=== PATIENT | male | born 1970 | race Caucasian/White ===

== ENCOUNTER 2016-04-04 10:32 | Inpatient (IN) | payer OTHER ==
[~2016-04-04] VITALS: Ht 177.8 cm; Wt 211.3 kg
[2016-04-04] MEDS ORDERED: NORVASC 5MG5 MG/TAB PO (11:34)
[2016-04-04] MEDS ORDERED: ASPIRIN 32325 MG/TAB PO (11:35)
[2016-04-04] MEDS ORDERED: CIPRO 500MG TA500 MG PO (11:36)
[2016-04-04] MEDS ORDERED: LASIX 40MG TABL40 MG PO (11:37)
[2016-04-04] MEDS ORDERED: ZESTRIL 20MG TA20 MG PO (11:41)
[2016-04-04] MEDS ORDERED: TOPROL XL 25MG25 MG PO (11:42)
[2016-04-04] MEDS ORDERED: KLOR-CON M2020 MEQ PO (11:43)
[2016-04-04] MEDS ORDERED: NORCO 325 MG-7.1 TAB PO (11:44)
[2016-04-04 12:10] VITALS: BP 152/90; PULSE 73
[2016-04-04 12:11] LABS: ARTERIAL BLD GAS O2 SATURATION 95.4 % (92-100); ARTERIAL BLD GAS TCO2 CT 33.1; ARTERIAL BLOOD GAS BASE EXCESS 2.5 (-2-2); ARTERIAL BLOOD GAS HCO3 31.1 meq/L (22-26); ARTERIAL BLOOD GAS PO2 90.4 mmHg (80-100); ARTERIAL BLOOD GAS pH 7.28 (7.35-7.45); OXYHEMOGLOBIN 93.7 %
[2016-04-04 12:13] LABS: ATS? YES
[2016-04-04 12:14] LABS: ALLEN TEST YES; ALLENS TEST RESULT PASS
[2016-04-04 12:41] LABS: BASO % 0.4 % (0.0-2.0); EOS # 0.1 (0.0-0.7); EOS % 0.6 % (0-4.0); GRAN # 6.3 (1.4-6.5); GRAN % 80.5 % (42.2-75.2); HEMATOCRIT 47.4 % (42.0-52.0); HEMOGLOBIN 13.5 g/dl (13.5-18.0); MEAN CELL VOLUME 82 fl (80.0-100.0); MEAN CORPUSCULAR HEMOGLOBIN 23 pg (27.0-31.0); MEAN CORPUSCULAR HGB CONC 29 g/dl (33.0-37.0); MONO # 0.4 (0.1-0.6); PLATELET COUNT 101 K/mm3 (130-400); WHITE BLOOD COUNT 7.8 K/mm3 (4.8-10.8)
[2016-04-04 12:54] LABS: BILIRUBIN,TOTAL 1.2 mg/dL (0.0-1.0); CREATININE, serum 0.79 mg/dL (0.66-1.25); POTASSIUM 4.2 mmol/L (3.4-5.0); TOTAL PROTEIN 8.8 gm/dL (6.4-8.2)
[2016-04-04 13:12] LABS: TROPONIN-I 0.165 ng/mL (0.000-0.034)
[2016-04-04 13:45] LABS: REDCELL DISTRIBUTION WIDTH-CV 21.2 % (11.5-14.5)
[2016-04-04 15:02] VITALS: BP 169/93; PULSE 86; TEMP 98
[2016-04-04 15:23] VITALS: BP 183/93; PULSE 72; TEMP 98.9
[2016-04-04 20:35] VITALS: BP 156/91; PULSE 67; TEMP 97.9
[2016-04-05] VITALS (7 sets, daily range): BP systolic 139–153; BP diastolic 59–90; PULSE 63–75; TEMP 98.1–99
[2016-04-05 05:25] LABS: PH 5 (5-8); SQUAMOUS EPITHELIAL 0-2 /hpf; URINE APPEARANCE Clear; URINE BACTERIA None Seen /hpf; URINE BILIRUBIN Negative (NEGATIVE); URINE BLOOD Negative (NEGATIVE); URINE COLOR Yellow; URINE GLUCOSE Negative (NEGATIVE); URINE KETONE Negative (NEGATIVE); URINE RBC 0-2 /hpf; URINE WBC 0-2 /hpf
[2016-04-05 11:50] LABS: BASO % 0.4 % (0.0-2.0); EOS # 0.2 (0.0-0.7); EOS % 2.9 % (0-4.0); GRAN # 5.3 (1.4-6.5); HEMATOCRIT 45.6 % (42.0-52.0); HEMOGLOBIN 12.9 g/dl (13.5-18.0); LYMPH # 0.8 (1.2-3.4); LYMPH % 12.3 % (20.0-51.0); MEAN CELL VOLUME 83 fl (80.0-100.0); MEAN CORPUSCULAR HEMOGLOBIN 24 pg (27.0-31.0); MEAN CORPUSCULAR HGB CONC 28 g/dl (33.0-37.0); MONO # 0.4 (0.1-0.6); MONO % 6.1 % (1.7-9.3); PLATELET COUNT 110 K/mm3 (130-400); RED BLOOD COUNT 5.47 M/mm3 (4.20-5.60); REDCELL DISTRIBUTION WIDTH-CV 20.6 % (11.5-14.5); WHITE BLOOD COUNT 6.8 K/mm3 (4.8-10.8)
[2016-04-06 03:40] VITALS: BP 145/78; PULSE 71; TEMP 97.3
[2016-04-06 07:53] VITALS: BP 137/62; PULSE 71; TEMP 97.8
[2016-04-06 11:38] VITALS: BP 139/73; PULSE 69; TEMP 98
[2016-04-06 17:24] VITALS: BP 151/77; PULSE 68; TEMP 99
[2016-04-06 20:21] VITALS: BP 143/77; PULSE 71; TEMP 97.8
[2016-04-07] VITALS (7 sets, daily range): BP systolic 134–152; BP diastolic 65–76; PULSE 61–69; TEMP 97.4–98.8
[2016-04-07 14:18] LABS: PH 5 (5-8); SQUAMOUS EPITHELIAL None Seen /hpf; URINE APPEARANCE Cloudy; URINE BACTERIA None Seen /hpf; URINE BILIRUBIN Negative (NEGATIVE); URINE BLOOD 3+ (NEGATIVE); URINE COLOR Red; URINE GLUCOSE 1+ (NEGATIVE); URINE KETONE Negative (NEGATIVE); URINE RBC >50 /hpf; URINE UROBILINOGEN >=4.0 mg/dL (NEGATIVE)
[2016-04-08 03:01] VITALS: BP 157/84; PULSE 69; TEMP 98.6
[2016-04-08 08:45] VITALS: BP 158/81; PULSE 66; TEMP 97.4
[2016-04-08 12:52] VITALS: BP 130/60; PULSE 69; TEMP 98.6
[2016-04-08 16:03] VITALS: BP 153/81; PULSE 69; TEMP 98.3
[2016-04-08 20:43] VITALS: BP 153/81; PULSE 68; TEMP 98.2
[2016-04-08 23:06] VITALS: BP 153/83; PULSE 73; TEMP 98.2
[2016-04-09 04:46] VITALS: BP 147/90; PULSE 80; TEMP 98.6
[2016-04-09 07:55] VITALS: BP 156/91; PULSE 73; TEMP 98.3
[2016-04-09] MEDS ORDERED: ASPIRIN 32325 MG/TAB PO (09:21)
[2016-04-09] MEDS ORDERED: PLAVIX 75MG TAB75 MG PO (09:21)
[2016-04-09] MEDS ORDERED: LIPITOR 80MG80 MG PO (09:23)
[2016-04-09 11:19] VITALS: BP 151/82; PULSE 91; TEMP 98.2
[2016-04-09 15:35] VITALS: BP 155/72; PULSE 75; TEMP 97.2
[2016-04-09 19:51] VITALS: BP 153/88; PULSE 65; TEMP 98
[2016-04-10 00:08] VITALS: BP 145/66; PULSE 84; TEMP 98.8
[2016-04-10 03:15] VITALS: BP 138/71; PULSE 69; TEMP 98.6
[2016-04-10] MEDS ORDERED: XARELTO15 MG PO (08:06)
[2016-04-10 08:25] VITALS: BP 156/80; PULSE 71; TEMP 98.9
[2016-04-10 12:06] VITALS: BP 157/80; PULSE 70; TEMP 97.3
== END 2016-04-10 15:30 | DRG 64 ==
LOC: MEDICAL 10:32
PROVIDERS: Internal Medicine; Nurse Practitioner Family
DX: I63.9 Cerebral infarction, unspecified (principal); J96.02 Acute respiratory failure with hypercapnia; I21.4 Non-ST elevation (NSTEMI) myocardial infarction; G81.91 Hemiplegia, unspecified affecting right dominant side; Z68.44 Body mass index [BMI] 60.0-69.9, adult; R47.1 Dysarthria and anarthria; E66.01 Morbid (severe) obesity due to excess calories; I10 Essential (primary) hypertension; H53.47 Heteronymous bilateral field defects
CPT/HCPCS: 99223-AI; 99232-AI; 99233-AI; 99239; A4315; J1650; J7120; Q9967

== ENCOUNTER 2016-04-10 12:34 | Inpatient (IN) | payer OTHER ==
[~2016-04-10] VITALS: Ht 177.8 cm; Wt 196.2 kg
[~2016-04-10 12:34] MED LIST: ASPIRIN 32325 MG/TAB PO; CIPRO 500MG TA500 MG PO; KLOR-CON M2020 MEQ PO; LASIX 40MG TABL40 MG PO; LIPITOR 80MG80 MG PO; NORCO 325 MG-7.1 TAB PO; NORVASC 5MG5 MG/TAB PO; PLAVIX 75MG TAB75 MG PO; TOPROL XL 25MG25 MG PO; XARELTO15 MG PO; ZESTRIL 20MG TA20 MG PO
[2016-04-10 19:10] VITALS: BP 151/83; PULSE 84; TEMP 97.6
[2016-04-11 04:21] VITALS: BP 153/78; PULSE 95; TEMP 98.2
[2016-04-11 15:51] VITALS: BP 132/67; PULSE 66; TEMP 98.5
[2016-04-11 22:36] LABS: PH 8 (5-8); SQUAMOUS EPITHELIAL 0-2 /hpf; URINE APPEARANCE Clear; URINE BACTERIA None Seen /hpf; URINE BILIRUBIN Negative (NEGATIVE); URINE BLOOD 2+ (NEGATIVE); URINE COLOR Yellow; URINE GLUCOSE Negative (NEGATIVE); URINE KETONE Negative (NEGATIVE); URINE UROBILINOGEN Negative (NEGATIVE); URINE WBC 0-2 /hpf
[2016-04-12 06:09] VITALS: BP 106/51; PULSE 66; TEMP 98
[2016-04-12 08:21] LABS: BASO # 0.1 (0.0-0.2); BASO % 0.8 % (0.0-2.0); EOS # 0.4 (0.0-0.7); EOS % 6.5 % (0-4.0); GRAN # 3.7 (1.4-6.5); GRAN % 57.8 % (42.2-75.2); HEMATOCRIT 46.8 % (42.0-52.0); HEMOGLOBIN 13.4 g/dl (13.5-18.0); LYMPH # 1.7 (1.2-3.4); LYMPH % 26.5 % (20.0-51.0); MEAN CELL VOLUME 81 fl (80.0-100.0); MEAN CORPUSCULAR HGB CONC 29 g/dl (33.0-37.0); MONO # 0.5 (0.1-0.6); MONO % 8.1 % (1.7-9.3); PLATELET COUNT 119 K/mm3 (130-400); RED BLOOD COUNT 5.76 M/mm3 (4.20-5.60); REDCELL DISTRIBUTION WIDTH-CV 20.1 % (11.5-14.5); WHITE BLOOD COUNT 6.5 K/mm3 (4.8-10.8)
[2016-04-12 08:31] LABS: CALCIUM 9.2 mg/dL (8.4-10.2); CREATININE, serum 0.76 mg/dL (0.66-1.25); POTASSIUM 4.3 mmol/L (3.4-5.0)
[2016-04-12 09:01] LABS: MEAN CORPUSCULAR HEMOGLOBIN 23 pg (27.0-31.0)
[2016-04-12 16:46] VITALS: BP 138/64; PULSE 66; TEMP 97.2
[2016-04-13 04:25] VITALS: BP 135/67; PULSE 67; TEMP 98.5
[2016-04-13 16:45] VITALS: BP 137/74; PULSE 71; TEMP 98.2
[2016-04-14 05:22] VITALS: BP 127/65; PULSE 68; TEMP 98.3
[2016-04-14 17:01] VITALS: BP 124/55; PULSE 73; TEMP 98.7
[2016-04-14 21:00] VITALS: BP 143/87; PULSE 81
[2016-04-15 06:00] VITALS: BP 112/52; PULSE 88; TEMP 99.4
[2016-04-15 08:09] VITALS: TEMP 100.8
[2016-04-15 09:34] LABS: BASO # 0.1 (0.0-0.2); BASO % 0.4 % (0.0-2.0); EOS # 0.1 (0.0-0.7); EOS % 0.6 % (0-4.0); GRAN # 11.7 (1.4-6.5); GRAN % 85.1 % (42.2-75.2); HEMATOCRIT 45.5 % (42.0-52.0); HEMOGLOBIN 13.1 g/dl (13.5-18.0); LYMPH % 7.2 % (20.0-51.0); MEAN CELL VOLUME 80 fl (80.0-100.0); MEAN CORPUSCULAR HEMOGLOBIN 23 pg (27.0-31.0); MEAN CORPUSCULAR HGB CONC 29 g/dl (33.0-37.0); MONO # 0.9 (0.1-0.6); MONO % 6.3 % (1.7-9.3); PLATELET COUNT 89 K/mm3 (130-400); RED BLOOD COUNT 5.66 M/mm3 (4.20-5.60); REDCELL DISTRIBUTION WIDTH-CV 20.5 % (11.5-14.5); WHITE BLOOD COUNT 13.8 K/mm3 (4.8-10.8)
[2016-04-15 09:38] LABS: CALCIUM 9.4 mg/dL (8.4-10.2); CREATININE, serum 0.72 mg/dL (0.66-1.25); POTASSIUM 5.3 mmol/L (3.4-5.0)
[2016-04-15 10:19] LABS: PH 8 (5-8); SQUAMOUS EPITHELIAL 0-2 /hpf; URINE APPEARANCE Clear; URINE BACTERIA None Seen /hpf; URINE BILIRUBIN Negative (NEGATIVE); URINE BLOOD 2+ (NEGATIVE); URINE COLOR Yellow; URINE GLUCOSE Negative (NEGATIVE); URINE KETONE Negative (NEGATIVE); URINE RBC >50 /hpf; URINE UROBILINOGEN Negative (NEGATIVE); URINE WBC 20-50 /hpf
[2016-04-15 14:00] VITALS: TEMP 101.2
[2016-04-16 06:04] VITALS: BP 125/56; PULSE 76; TEMP 99.1
[2016-04-16 10:54] LABS: CALCIUM 9.1 mg/dL (8.4-10.2); CREATININE, serum 0.73 mg/dL (0.66-1.25); POTASSIUM 4.6 mmol/L (3.4-5.0)
[2016-04-16 16:11] VITALS: BP 115/56; PULSE 72; TEMP 98.6
[2016-04-16 21:00] VITALS: BP 116/58; PULSE 76
[2016-04-17 07:26] VITALS: BP 107/47; PULSE 70; TEMP 98.2
[2016-04-17 16:50] VITALS: BP 110/69; PULSE 71; TEMP 98.9
[2016-04-18 04:18] VITALS: BP 98/47; PULSE 60; TEMP 97.2
[2016-04-18 16:30] VITALS: BP 112/53; PULSE 73; TEMP 98.4
[2016-04-19 03:17] VITALS: BP 113/51; PULSE 77; TEMP 98.6
[2016-04-19 07:33] LABS: BASO # 0.1 (0.0-0.2); BASO % 0.8 % (0.0-2.0); EOS # 0.7 (0.0-0.7); GRAN % 63.3 % (42.2-75.2); HEMATOCRIT 41.8 % (42.0-52.0); HEMOGLOBIN 12.1 g/dl (13.5-18.0); LYMPH % 10.7 % (20.0-51.0); MEAN CELL VOLUME 80 fl (80.0-100.0); MEAN CORPUSCULAR HEMOGLOBIN 23 pg (27.0-31.0); MEAN CORPUSCULAR HGB CONC 29 g/dl (33.0-37.0); MONO # 0.9 (0.1-0.6); MONO % 13.9 % (1.7-9.3); PLATELET COUNT 87 K/mm3 (130-400); RED BLOOD COUNT 5.24 M/mm3 (4.20-5.60); REDCELL DISTRIBUTION WIDTH-CV 20.4 % (11.5-14.5); WHITE BLOOD COUNT 6.3 K/mm3 (4.8-10.8)
[2016-04-19 07:49] LABS: CALCIUM 9.2 mg/dL (8.4-10.2); CREATININE, serum 0.79 mg/dL (0.66-1.25); POTASSIUM 4.7 mmol/L (3.4-5.0)
[2016-04-19 08:35] LABS: LYMPH # 0.7 (1.2-3.4)
[2016-04-19 17:39] VITALS: BP 122/54; PULSE 69; TEMP 98.1
[2016-04-20 06:12] VITALS: BP 120/59; PULSE 77; TEMP 97
[2016-04-20 16:10] VITALS: BP 117/64; PULSE 65; TEMP 98.1
[2016-04-21 04:16] VITALS: BP 120/60; PULSE 72; TEMP 97.5
[2016-04-21 16:06] VITALS: BP 122/62; PULSE 68; TEMP 98.6
[2016-04-22 05:07] VITALS: BP 113/53; PULSE 69; TEMP 98.2
[2016-04-22 18:30] VITALS: BP 115/63; PULSE 76; TEMP 100.4
[2016-04-22 20:49] VITALS: TEMP 100.1; TEMP 101.7; TEMP 98.7
[2016-04-23 04:59] VITALS: BP 139/74; PULSE 90; TEMP 100.1
[2016-04-23 06:27] VITALS: TEMP 101.2
[2016-04-23 08:00] VITALS: TEMP 101.7
[2016-04-23 10:00] VITALS: TEMP 99.5
[2016-04-23 16:05] VITALS: BP 147/43; PULSE 72; TEMP 98.7
[2016-04-23 19:12] LABS: PH 5 (5-8); SQUAMOUS EPITHELIAL 0-2 /hpf; URINE APPEARANCE Hazy; URINE BACTERIA None Seen /hpf; URINE BILIRUBIN Negative (NEGATIVE); URINE BLOOD 2+ (NEGATIVE); URINE COLOR Amber; URINE GLUCOSE Negative (NEGATIVE); URINE KETONE Negative (NEGATIVE); URINE UROBILINOGEN >=4.0 mg/dL (NEGATIVE)
[2016-04-24 05:36] VITALS: BP 108/45; PULSE 74; TEMP 99.5
[2016-04-24 07:04] LABS: ADD PATHOLOGY DIFF REVIEW NO
[2016-04-24 07:32] LABS: ADJUSTED CALCIUM 9.7 mg/dL (8.4-10.2); ALBUMIN 3.3 gm/dL (3.5-5.0); BILIRUBIN,TOTAL 1.2 mg/dL (0.0-1.0); CALCIUM 9.1 mg/dL (8.4-10.2); CREATININE, serum 1.16 mg/dL (0.66-1.25); MAGNESIUM 1.9 mg/dL (1.6-2.3); POTASSIUM 4.9 mmol/L (3.4-5.0); TOTAL PROTEIN 7.9 gm/dL (6.4-8.2)
[2016-04-24 07:48] LABS: HEMATOCRIT 44.1 % (42.0-52.0); HEMOGLOBIN 12.9 g/dl (13.5-18.0); MEAN CELL VOLUME 80 fl (80.0-100.0); MEAN CORPUSCULAR HEMOGLOBIN 23 pg (27.0-31.0); MEAN CORPUSCULAR HGB CONC 29 g/dl (33.0-37.0); PLATELET COUNT 137 K/mm3 (130-400); RED BLOOD COUNT 5.52 M/mm3 (4.20-5.60); REDCELL DISTRIBUTION WIDTH-CV 20.5 % (11.5-14.5); WHITE BLOOD COUNT 9.7 K/mm3 (4.8-10.8)
[2016-04-24 11:11] LABS: BAND 49 % (0-10); EOSINOPHIL 7 % (0-4); HYPOCHROMIA 1+; METAMYELOCYTE 2 % (0-0); NEUTROPHILS 30 % (42.0-75.2); TOTAL CELLS COUNTED 100
[2016-04-24 11:12] LABS: PLATELET ESTIMATE DECREASED (NORMAL)
[2016-04-24 16:07] VITALS: BP 107/60; PULSE 80; TEMP 99
[2016-04-24 20:30] VITALS: BP 112/61; PULSE 88; TEMP 98.7
[2016-04-25 05:46] VITALS: BP 137/51; PULSE 87; TEMP 99.5
[2016-04-25 17:00] VITALS: BP 132/52; PULSE 79; TEMP 98.3
[2016-04-26 04:34] VITALS: BP 115/68; PULSE 87; TEMP 97.7
[2016-04-26 16:09] VITALS: BP 117/53; PULSE 73; TEMP 97.6
[2016-04-27 00:01] VITALS: TEMP 97.9
[2016-04-27 04:49] VITALS: BP 121/47; PULSE 65; TEMP 98
[2016-04-27 07:23] LABS: ADD PATHOLOGY DIFF REVIEW NO
[2016-04-27 07:35] LABS: HEMATOCRIT 41.7 % (42.0-52.0); HEMOGLOBIN 12.2 g/dl (13.5-18.0); MEAN CELL VOLUME 80 fl (80.0-100.0); MEAN CORPUSCULAR HGB CONC 29 g/dl (33.0-37.0); PLATELET COUNT 119 K/mm3 (130-400); RED BLOOD COUNT 5.19 M/mm3 (4.20-5.60); REDCELL DISTRIBUTION WIDTH-CV 20.6 % (11.5-14.5); WHITE BLOOD COUNT 7.6 K/mm3 (4.8-10.8)
[2016-04-27 07:43] LABS: CALCIUM 9.2 mg/dL (8.4-10.2); CREATININE, serum 0.9 mg/dL (0.66-1.25); MAGNESIUM 1.9 mg/dL (1.6-2.3); POTASSIUM 4.8 mmol/L (3.4-5.0)
[2016-04-27 08:06] LABS: MEAN CORPUSCULAR HEMOGLOBIN 24 pg (27.0-31.0)
[2016-04-27 09:46] LABS: BAND 18 % (0-10); BASOPHIL 1 % (0-2); EOSINOPHIL 25 % (0-4); METAMYELOCYTE 2 % (0-0); MYELOCYTE 1 % (0-0); NEUTROPHILS 29 % (42.0-75.2); PLATELET ESTIMATE DECREASED (NORMAL); TOTAL CELLS COUNTED 100
[2016-04-27 09:47] LABS: ANISOCYTOSIS 3+
[2016-04-27 09:52] LABS: HYPOCHROMIA 2+; MICROCYTOSIS 2+; OVALOCYTES 1+
[2016-04-27 18:00] VITALS: BP 156/68; PULSE 78; TEMP 99.5
[2016-04-28 05:59] VITALS: BP 135/71; PULSE 76; TEMP 97.3
[2016-04-28 16:37] VITALS: BP 124/63; PULSE 71; TEMP 97.3
[2016-04-29 04:52] VITALS: BP 128/58; PULSE 70; TEMP 98.6
[2016-04-29 17:29] VITALS: BP 142/68; PULSE 78; TEMP 97.5
[2016-04-30 06:04] VITALS: BP 121/55; PULSE 69; TEMP 97.3
[2016-04-30 17:45] VITALS: BP 128/62; PULSE 74; TEMP 98.5
[2016-05-01 04:32] VITALS: BP 134/67; PULSE 84; TEMP 98.5
[2016-05-01] MEDS ORDERED: LIPITOR 80MG80 MG PO (14:47)
[2016-05-01] MEDS ORDERED: PLAVIX 75MG TAB75 MG PO (14:47)
[2016-05-01] MEDS ORDERED: ASPIRIN E.C. 8181 MG PO (14:50)
[2016-05-01] MEDS ORDERED: ZESTRIL 10MG10 MG PO (14:50)
[2016-05-01] MEDS ORDERED: LASIX 20MG TABL20 MG PO (14:54)
== END 2016-05-01 17:14 | disposition home or self-care (01) | DRG 56 ==
PROVIDERS: Internal Medicine
DX: I69.351 Hemiplegia and hemiparesis following cerebral infarction affecting right dominant side (principal); I21.4 Non-ST elevation (NSTEMI) myocardial infarction; J96.22 Acute and chronic respiratory failure with hypercapnia; Z68.44 Body mass index [BMI] 60.0-69.9, adult; D68.32 Hemorrhagic disorder due to extrinsic circulating anticoagulants; I10 Essential (primary) hypertension; I69.322 Dysarthria following cerebral infarction; H53.47 Heteronymous bilateral field defects; E66.01 Morbid (severe) obesity due to excess calories; R04.0 Epistaxis; T45.525A Adverse effect of antithrombotic drugs, initial encounter; E87.5 Hyperkalemia
CPT/HCPCS: 99222; 99222-AI; 99232-AI; 99233-AI; 99239; J0456; J0696; J7030; J7050; Q9967